=== PATIENT | female | born 1985 | race African-American/Black ===

== ENCOUNTER 2017-10-29 17:28 | Emergency (ER) | payer MEDICAID ==
[~2017-10-29] VITALS: Ht 172.7 cm; Wt 103.4 kg
[2017-10-29 18:26] LABS: Urine Bacteria NONE SEEN /hpf (None Seen); Urine Blood Negative /uL (Negative); Urine Mucus FEW (None Seen); Urine Specific Gravity 1.027 (1.001-1.035); Urine WBC 1 /hpf (0 - 5)
[2017-10-29 18:32] LABS: Basophils # (auto) 0.1 uL; Lymphocytes # (auto) 1.8 uL; Monocytes # (auto) 0.5 uL
[2017-10-29 18:34] LABS: Basophils % (auto) 0.8 % (0.0-2.0); Eosinophils # (auto) 0.2 uL; Eosinophils % (auto) 3.2 % (0.0-7.0); Hematocrit 36.8 % (36.0-46.0); Lymphocytes % (auto) 23.6 % (10.0-50.0); Mean Corpuscular Hemoglobin 25.9 pg (28.0-32.0); Mean Corpuscular Hgb Conc. 32.6 g/dL (32.0-36.0); Mean Corpuscular Volume 79.5 fL (80.0-100.0); Monocytes % (auto) 7.1 % (0.0-12.0); Neutrophils % (auto) 65.3 % (37.0-80.0); Platelet Count (auto) 282 10^3/uL (140-450); Red Blood Cells 4.63 10^6/uL (4.0-5.20); Red Cell Distribution Width 14.9 % (11.8-14.3); White Blood Cell 7.7 10^3/uL (4.4-10.8)
[2017-10-29 18:52] LABS: Albumin 3.5 g/dL (3.4-5.0); BUN/Creatinine Ratio 11.8; Bilirubin, Total 0.5 mg/dL (0.2-1.0); Calcium 8.7 mg/dL (8.5-10.1); Potassium 3.8 mmol/L (3.5-5.1); Total Protein 7.4 g/dL (6.4-8.2)
[2017-10-30] MEDS ORDERED: MECLIZINE HCL 25 MG TAB PO ONE (00:15)
[2017-10-30] MEDS ORDERED: traMADol HCL 50 MG TAB PO ONE (00:15)
[2017-10-30 02:00] VITALS: BP 133/74
== END 2017-10-30 02:37 | disposition home or self-care (01) ==
LOC: ER 17:35
DX: R42 Dizziness and giddiness (principal); R51 Headache
CPT/HCPCS: 36415; 70450; 80053; 81001; 81025; 85025; 93005; 99285; J8597

== ENCOUNTER 2018-07-07 08:35 | Emergency (ER) | payer MEDICAID ==
[~2018-07-07] VITALS: Ht 172.7 cm; Wt 99.8 kg
[2018-07-07 08:35] VITALS: BP 115/76
[2018-07-07] MEDS ORDERED: METHOCARBAMOL 500 MG TAB PO ONE (10:15)
[2018-07-07] MEDS ORDERED: HYDROcodone-ACET 5/325MG TAB PO ONE (10:15)
== END 2018-07-07 10:42 | disposition home or self-care (01) ==
LOC: EDBD 08:35 → ER 08:35
DX: S20.212A Contusion of left front wall of thorax, initial encounter (principal); V43.52XA Car driver injured in collision with other type car in traffic accident, initial encounter; Y93.89 Activity, other specified; Y99.8 Other external cause status; Y92.410 Unspecified street and highway as the place of occurrence of the external cause
CPT/HCPCS: 70450; 72125; 73030; 73100

== ENCOUNTER 2018-10-03 13:27 | Emergency (ER) | payer SELFPAY ==
[~2018-10-03] VITALS: Ht 175.3 cm; Wt 99.8 kg
[2018-10-03 13:50] VITALS: BP 111/72
[2018-10-03 15:15] LABS: Urine WBC None Seen /hpf (0 - 5)
[2018-10-03 15:25] LABS: Urine Amorphous Crystal FEW /hpf (None Seen); Urine Bacteria NONE SEEN /hpf (None Seen); Urine Blood Negative /uL (Negative); Urine Mucus FEW (None Seen); Urine Specific Gravity 1.026 (1.001-1.035)
[2018-10-03 15:26] LABS: Basophils # (auto) 0 uL; Hematocrit 35.3 % (36.0-46.0); Monocytes # (auto) 0.9 uL
[2018-10-03 15:31] LABS: Eosinophils # (auto) 0.5 uL; Hemoglobin 11.1 g/dL (12.2-16.2); Lymphocytes # (auto) 1.2 uL; Lymphocytes % (auto) 16.3 % (10.0-50.0); Mean Corpuscular Hemoglobin 23.5 pg (28.0-32.0); Mean Corpuscular Hgb Conc. 31.5 g/dL (32.0-36.0); Mean Corpuscular Volume 74.8 fL (80.0-100.0); Monocytes % (auto) 11.6 % (0.0-12.0); Neutrophils # (auto) 4.9 uL; Neutrophils % (auto) 65.1 % (37.0-80.0); Nucleated Red Blood Cells % 0.1 %; Platelet Count (auto) 265 10^3/uL (140-450); Red Blood Cells 4.72 10^6/uL (4.0-5.20); White Blood Cell 7.5 10^3/uL (4.4-10.8)
[2018-10-03 15:46] LABS: Albumin 3.5 g/dL (3.4-5.0); Calcium 8.4 mg/dL (8.5-10.1)
[2018-10-03 15:51] LABS: BUN/Creatinine Ratio 19.2; Bilirubin, Total 0.6 mg/dL (0.2-1.0); Total Protein 7.2 g/dL (6.4-8.2)
== END 2018-10-03 16:34 | disposition home or self-care (01) ==
LOC: ER 13:27
DX: N83.201 Unspecified ovarian cyst, right side (principal)
CPT/HCPCS: 36415; 74176; 80053; 81001; 85025

== ENCOUNTER 2020-05-05 08:42 | Emergency (ER) | payer SELFPAY ==
[~2020-05-05] VITALS: Ht 172.7 cm; Wt 102.5 kg
[2020-05-05] MEDS ORDERED: cefTRIAXone W LIDOCAINE 1 GM IM IM ONE (10:30)
[2020-05-05 11:37] VITALS: BP 111/73
== END 2020-05-05 11:40 | disposition home or self-care (01) ==
LOC: ER 08:42
DX: J18.9 Pneumonia, unspecified organism (principal); R05 Cough
CPT/HCPCS: 71045; 93005; 96372; 99283; J0696